=== PATIENT | female | born 1990 | race Caucasian/White ===

== ENCOUNTER 2016-11-14 19:23 | Day surgery (SDC) | payer OTHER, MEDICARE ==
[~2016-11-14] VITALS: Ht 165.1 cm; Wt 127.0 kg
[2016-11-14 23:16] LABS: HEMOGLOBIN 13.8 gm/dl (12.3-15.3); RED BLOOD COUNT 4.73 M/UL (4.00-5.10); WHITE BLOOD COUNT 15.2 K/UL (4.5-11.0)
[2016-11-14 23:32] LABS: BUN/CREATININE RATIO 17 (0-10)
[2016-11-15 08:30] LABS: HEMOGLOBIN 13.2 gm/dl (12.3-15.3); RED BLOOD COUNT 4.58 M/UL (4.00-5.10); WHITE BLOOD COUNT 10.2 K/UL (4.5-11.0)
[2016-11-15] MEDS ORDERED: NORCO 10-325 T1 EACH PO (14:14)
[2017-03-30] MEDS ORDERED: SPRINTEC 28 DA1 EACH PO (23:42)
== END 2016-11-15 | disposition home or self-care (01) ==
LOC: ER1 19:23 → ZEROF 11-15 00:25 → ER1 11-15 00:25 → OR 11-15 09:00
PROVIDERS: Orthopaedic Surgery; Student in an Organized Health Care Education/Training Program
PROC: 0PSJ04Z Reposition Left Radius with Internal Fixation Device, Open Approach (ICD-10-PCS; principal; 2016-11-15 16:45)
DX: S52.502A Unspecified fracture of the lower end of left radius, initial encounter for closed fracture (principal); S52.612A Displaced fracture of left ulna styloid process, initial encounter for closed fracture; Z90.49 Acquired absence of other specified parts of digestive tract; Z88.1 Allergy status to other antibiotic agents; Z79.891 Long term (current) use of opiate analgesic; Z79.899 Other long term (current) drug therapy; V49.9XXA Car occupant (driver) (passenger) injured in unspecified traffic accident, initial encounter; Y92.488 Other paved roadways as the place of occurrence of the external cause
CPT/HCPCS: 29125; 36415; 71010; 73060; 73090; 73100; 73120; 76000; 80053; 81001; 82550; 82553; 83690; 83874; 84484; 84703; 85025; 87086; 93005; 96374; 96375; 96376; 99285; C1713; J1100; J2250; J2270; J2405; J2795; J3010; J7050; J7120; Q9962

== ENCOUNTER 2020-09-12 06:20 | Emergency (ER) | payer BC ==
[~2020-09-12 06:20] MED LIST: NORCO 10-325 T1 EACH PO; PREDNISONE 50 M50 MG PO; PROVENTIL HFA6.7 GM INH; SPRINTEC 28 DA1 EACH PO
[2020-09-12 06:51] LABS: HEMOGLOBIN 13.2 gm/dl (12.3-15.3); RED BLOOD COUNT 4.58 M/UL (4.00-5.10)
[2020-09-12 07:17] LABS: BUN/CREATININE RATIO 10 (0-10)
[2020-09-12] MEDS ORDERED: ASPIRIN CHEWABL81 MG PO (11:38)
== END 2020-09-12 11:58 | disposition home or self-care (01) ==
LOC: ER1 06:20
PROVIDERS: Family Medicine
DX: R07.9 Chest pain, unspecified (principal); R00.2 Palpitations; K76.0 Fatty (change of) liver, not elsewhere classified; R79.89 Other specified abnormal findings of blood chemistry; Z88.0 Allergy status to penicillin
CPT/HCPCS: 36415; 71045; 80053; 82550; 82553; 83874; 84439; 84443; 84484; 84703; 85025; 85379; 93005; 93242; 99285; Q9967

== ENCOUNTER 2020-09-17 04:55 | Emergency (ER) | payer BC ==
[~2020-09-17 04:55] MED LIST changes: +ASPIRIN CHEWABL81 MG PO
[2020-09-17 07:14] LABS: HEMOGLOBIN 12.5 gm/dl (12.3-15.3); RED BLOOD COUNT 4.38 M/UL (4.00-5.10); WHITE BLOOD COUNT 9.3 K/UL (4.5-11.0)
[2020-09-17 07:35] LABS: BUN/CREATININE RATIO 15 (0-10)
[2020-09-17] MEDS ORDERED: HYDROXYZINE PAM25 MG PO (08:58)
== END 2020-09-17 09:30 | disposition home or self-care (01) ==
LOC: ER1 04:55
PROVIDERS: Family Medicine
DX: F41.9 Anxiety disorder, unspecified (principal); R07.89 Other chest pain; I10 Essential (primary) hypertension; Z88.0 Allergy status to penicillin
CPT/HCPCS: 36415; 71045; 80053; 82550; 82553; 83874; 84484; 84703; 85025; 93005; 99285; Q0177

== ENCOUNTER 2020-10-11 02:59 | Emergency (ER) | payer BC ==
[~2020-10-11 02:59] MED LIST changes: +HYDROXYZINE PAM25 MG PO
[2020-10-11 05:00] LABS: HEMOGLOBIN 13.5 gm/dl (12.3-15.3); RED BLOOD COUNT 4.75 M/UL (4.00-5.10); WHITE BLOOD COUNT 9.2 K/UL (4.5-11.0)
[2020-10-11 05:28] LABS: BUN/CREATININE RATIO 13 (0-10)
[2020-10-11] MEDS ORDERED: ATIVAN1 MG PO (06:01)
== END 2020-10-11 06:00 | disposition home or self-care (01) ==
LOC: ER1 02:59
PROVIDERS: Family Medicine
DX: R07.89 Other chest pain (principal); R79.89 Other specified abnormal findings of blood chemistry; Z88.0 Allergy status to penicillin; Z86.16 Personal history of COVID-19
CPT/HCPCS: 71046; 80053; 80061; 82550; 82553; 83874; 84484; 85025; 85379; 85610; 93005; 99285

== ENCOUNTER → 2020-10-16 | Outpatient (CLI) | payer BC ==
[~2020-10-16] MED LIST changes: +ATIVAN1 MG PO
[2020-10-16 17:49] LABS: HEMOGLOBIN 13.8 gm/dl (12.3-15.3); RED BLOOD COUNT 4.81 M/UL (4.00-5.10)
[2020-10-16 18:18] LABS: BUN/CREATININE RATIO 14 (0-10)
[2020-10-18 12:15] LABS: THYROXINE (T4) 8.9 ug/dL (4.5-12.0); TRIIODOTHYRONINE (T3) 143 ng/dL (71-180)
[2020-10-20 00:09] LABS: CCP ANTIBODIES IGG/IGA 7 units (0-19); RHEUMATOID FACTOR (RF) <10.0 IU/mL (0.0-13.9)
== END ==
LOC: LAB 16:40
PROVIDERS: Nurse Practitioner
DX: N39.0 Urinary tract infection, site not specified (principal); R53.83 Other fatigue; R07.9 Chest pain, unspecified
CPT/HCPCS: 80053; 80061; 83036; 84436; 84443; 84480; 85025; 85652; 86038; 86140; 86200; 86431; 87086

== ENCOUNTER → 2020-10-24 | Outpatient (CLI) | payer BC | LOC: LAB 15:12 | DX: R74.8 Abnormal levels of other serum enzymes (principal) | CPT/HCPCS: 36415; 80076 ==

== ENCOUNTER → 2020-10-25 | Outpatient (CLI) | payer BC ==
[2020-10-26 11:14] LABS: HBSAG SCREEN Negative (Negative); HEP A AB, IGM Negative (Negative); HEP B CORE AB, IGM Negative (Negative); HEP C VIRUS AB <0.1 (0.0-0.9)
== END ==
LOC: LAB 13:30
PROVIDERS: Nurse Practitioner
DX: R74.8 Abnormal levels of other serum enzymes (principal)
CPT/HCPCS: 36415; 80074

== ENCOUNTER → 2020-11-10 | Outpatient (CLI) | payer BC | LOC: KOH-I 08:27 | DX: R74.8 Abnormal levels of other serum enzymes (principal); K76.0 Fatty (change of) liver, not elsewhere classified | CPT/HCPCS: 76705 ==

== ENCOUNTER → 2020-11-14 | Outpatient (CLI) | payer BC | LOC: HEART 5 10:51 | DX: R07.9 Chest pain, unspecified (principal); R00.0 Tachycardia, unspecified; R00.2 Palpitations; R94.39 Abnormal result of other cardiovascular function study ==

== ENCOUNTER → 2020-11-20 | Outpatient (CLI) | payer BC ==
[2020-11-26 15:10] LABS: QUANTIFERON MITOGEN VALUE >10.00 IU/mL (.); QUANTIFERON TB1 AG VALUE 0.02 IU/mL (.); QUANTIFERON TB2 AG VALUE 0.25 IU/mL (.); QUANTIFERON-TB GOLD PLUS Negative (Negative)
== END ==
LOC: LAB 16:22
DX: L40.0 Psoriasis vulgaris (principal); Z79.899 Other long term (current) drug therapy

== ENCOUNTER → 2021-02-22 | Outpatient (CLI) | payer SELFPAY ==
[2021-02-22 09:58] LABS: HEMOGLOBIN 13.1 gm/dl (12.3-15.3); RED BLOOD COUNT 4.59 M/UL (4.00-5.10); WHITE BLOOD COUNT 6.3 K/UL (4.5-11.0)
[2021-02-22 10:16] LABS: BUN/CREATININE RATIO 15 (0-10)
== END ==
LOC: LAB 08:47
PROVIDERS: Nurse Practitioner
DX: L40.9 Psoriasis, unspecified (principal); K21.9 Gastro-esophageal reflux disease without esophagitis; E66.01 Morbid (severe) obesity due to excess calories; K76.0 Fatty (change of) liver, not elsewhere classified
CPT/HCPCS: 80053; 80061; 81001; 84443; 85025